=== PATIENT | female | born 1970 | race Caucasian/White ===

== ENCOUNTER 2017-10-26 13:06 | Emergency (ER) | payer BC ==
--- NOTE | 2017-10-26 14:13 | UC ---
Dawit Ayala Angela, scribed for Francisco Javier Walker MD on 10/26/17 at 1323 . General HPI - HPI Summary HPI Summary: This pt is a 47 y/o female presenting to [facility] for a medication refill. Pt states she just moved to the area and has ran out of her blood pressure medication. She reports she has been getting intermittent headaches, but denies any today. Denies chest pain, SOB, dizziness, lightheadedness, blurry vision, any other complaints. PMHx: endometrial CA s/p hysterectomy. She is currently in remission. - History of Current Complaint Stated Complaint: MED REFILL Time Seen by Provider: 10/26/17 13:13 Hx Obtained From: Patient Onset/Duration: Lasting Days, Still Present Timing: Intermittent Episodes Lasting: Onset Severity: Moderate - intermittent Current Severity: None Pain Intensity: 0 Pain Location at: head Aggravating: nothing Alleviating: nothing Associated Signs & Symptoms: Positive: Headache - intermittent, Other - NEG: blurry vision. Negative: Confusion, Chest Pain, Dizziness, Fever, SOB - Allergy/Home Medications Allergies/Adverse Reactions: Allergies Allergy/AdvReac Type Severity Reaction Status Date / Time Penicillins Allergy Swelling Verified 10/26/17 13:38 PMH/Surg Hx/FS Hx/Imm Hx Other Endocrine History: DENIES: diabetes Cardiovascular History: Hypertension Other Cancer History: Ovarian and endometrial cancer - Surgical History Surgical History: Yes Surgery Procedure, Year, and Place: Hysterectomy - Family History Known Family History: Negative: Cardiac Disease, Hypertension, Diabetes - Social History Alcohol Use: Occasionally Substance Use Type: None Smoking Status (MU): Never Smoked Tobacco Review of Systems Constitutional: Negative Skin: Negative Eyes: Negative ENT: Negative Respiratory: Negative Cardiovascular: Negative Gastrointestinal: Negative Genitourinary: Negative Motor: Negative Neurovascular: Negative Musculoskeletal: Negative Neurological: Headache - intermittent, none today Psychological: Negative All Other Systems Reviewed And Are Negative: Yes Physical Exam - Summary Physical Exam Summary: VITAL SIGNS: Reviewed. GENERAL: Patient is an obese female who is lying comfortable in the stretcher. Patient is not in any acute respiratory distress. HEAD AND FACE: Normocephalic EYES: PERRLA, EOMI x 2. EARS: Hearing grossly intact. MOUTH: Oropharynx within normal limits. NECK: Supple, trachea is midline, no adenopathy, no JVD, no carotid bruit. CHEST: Symmetric, no tenderness at palpation LUNGS: Clear to auscultation bilaterally. No wheezing or crackles. CVS: Regular rate and rhythm, S1 and S2 present, no murmurs or gallops appreciated. ABDOMEN: Soft, non-tender. Bowel sounds are normal. No abdominal abnormal pulsations. EXTREMITIES: Full ROM in all major joints, no edema, no cyanosis or clubbing. NEURO: Alert and oriented x 3. No acute neurological deficits. Speech is normal and follows commands. SKIN: Dry and warm Triage Information Reviewed: Yes Vital Signs: Initial Vitals Temp Pulse Resp BP Pulse Ox 97.2 F 59 16 145/100 99 10/26/17 13:30 10/26/17 13:30 10/26/17 13:30 10/26/17 13:30 10/26/17 13:30 Vital Signs Reviewed: Yes Course/Dx - Course Course Of Treatment: This pt is a 47 y/o female presenting to [facility] for a medication refill. Pt states she just moved to the area and has ran out of her blood pressure medication. She reports she has been getting intermittent headaches, but denies any today. Denies chest pain, SOB, dizziness, lightheadedness, blurry vision, any other complaints. PMHx: endometrial CA s/p hysterectomy. She is currently in remission. Pt was discharged home with a prescription for Lisinopril. She was a given a referral to establish a PCP and follow up. Pt was instructed to return to the urgent care or go to ER immediately if any of the symptoms return or worsens. Pt understands and agrees. All questions were answered to patient satisfaction. There were no further complaints or concerns. Pt is hemodynamically stable, alert and oriented x3. The patient was found to have increased blood pressure in UC. The patient will follow up with PCP for better control of BP. - Differential Dx - Multi-Symptom Provider Diagnoses: Medication refill Discharge - Sign-Out/Discharge Documenting (check all that apply): Discharge - discharge to home - Discharge Plan Condition: Stable Disposition: HOME Prescriptions: Lisinopril/HCTZ 20/12.5(NF) [Zestoretic 20/12.5(NF)] 1 tab PO DAILY #30 tab Patient Education Materials: Hypertension (ED), Medicine Refill (ED) Referrals: [facility] [Outside] No Primary Care Phys,NOPCP [Primary Care Provider] - Additional Instructions: Take medications as instructed Increase your fluid intake Return to the UC if symptoms worsen The documentation as recorded by the Dawit ugarte Angela accurately reflects the service I personally performed and the decisions made by me, Francisco Javier Walker MD.
== END 2017-10-26 13:38 | disposition home or self-care (01) ==
LOC: UCEAST 13:06
DX: I10 Essential (primary) hypertension (principal); Z76.0 Encounter for issue of repeat prescription; Z85.43 Personal history of malignant neoplasm of ovary; Z85.42 Personal history of malignant neoplasm of other parts of uterus; Z88.0 Allergy status to penicillin
CPT/HCPCS: 99202; G0463

== ENCOUNTER 2018-03-11 14:49 | Emergency (ER) | payer BC ==
[2018-03-11 14:57] VITALS: BP 151/75
--- NOTE | 2018-03-11 15:56 | UC ---
Shoulder Pain HPI - HPI Summary HPI Summary: 47 yo female felt a pop right shoulder lifting a cooler Right handed occurred yesterday relatively no pain at rest hurts to abduct no numbness/tingling - History of Current Complaint Chief Complaint: UCUpperExtremity Stated Complaint: R SHOULDER INJURY Time Seen by Provider: 03/11/18 15:48 Hx Obtained From: Patient Onset/Duration: Sudden Onset Timing: Constant Severity Initially: Moderate Severity Currently: None Location Of Pain: Is Diffuse Pain Intensity: 0 Pain Scale Used: 0-10 Numeric Character: Aching Aggravating Factor(s): Movement, External Rotation, Abduction Associated Signs And Symptoms: Positive: Negative Related History: Dominant Hand Right - Allergies/Home Medications Allergies/Adverse Reactions: Allergies Allergy/AdvReac Type Severity Reaction Status Date / Time Penicillins Allergy Swelling Verified 03/11/18 14:57 PMH/Surg Hx/FS Hx/Imm Hx Previously Healthy: Yes Cardiovascular History: Hypertension - Surgical History Surgical History: Yes Surgery Procedure, Year, and Place: Hysterectomy - Family History Known Family History: Positive: Cardiac Disease, Hypertension, Diabetes, Other - CA - Social History Alcohol Use: Occasionally Substance Use Type: None Smoking Status (MU): Never Smoked Tobacco Review of Systems Constitutional: Negative Skin: Negative Eyes: Negative ENT: Negative Respiratory: Negative Cardiovascular: Negative Gastrointestinal: Negative Genitourinary: Negative Motor: Negative Neurovascular: Negative Musculoskeletal: Arthralgia Neurological: Negative Psychological: Negative Is Patient Immunocompromised?: No All Other Systems Reviewed And Are Negative: Yes Physical Exam Triage Information Reviewed: Yes Appearance: Well-Appearing, No Pain Distress, Well-Nourished Vital Signs: Initial Vital Signs Temp 98.9 F 03/11/18 14:54 Pulse 64 03/11/18 14:54 Resp 12 03/11/18 14:54 BP 151/75 03/11/18 14:54 Pulse Ox 100 03/11/18 14:54 Vital Signs Reviewed: Yes Eyes: Positive: Conjunctiva Clear ENT: Positive: Hearing grossly normal. Negative: Nasal congestion, Nasal drainage, Trismus, Muffled voice, Hoarse voice Neck: Positive: Supple Respiratory: Positive: Lungs clear, Normal breath sounds, No respiratory distress, No accessory muscle use Cardiovascular: Positive: RRR, No Murmur Musculoskeletal: Positive: No Edema, ROM Limited @ - right shoulder-unable to abduce >30 degrees Neurological: Positive: Alert Psychological Exam: Normal Skin Exam: Normal Diagnostics - Radiology No standard instances Xray Interpretation: No Acute Changes - right shoulder Radiology Interpretation Completed By: Radiologist Shoulder Course/Dx - Differential Dx/Diagnosis Provider Diagnoses: right shoulder injury-suspect rotator cuff tear Discharge - Sign-Out/Discharge Documenting (check all that apply): Patient Departure All imaging exams completed and their final reports reviewed: Yes - Discharge Plan Condition: Stable Disposition: HOME Patient Education Materials: Rotator Cuff Injury (ED), How to Use a Sling (ED) Forms: *Work Release Referrals: Jose Alejandro Artis MD [Medical Doctor] - As Soon As Possible Additional Instructions: ice aleve I am concerned that you have a rotator cuff tear - Billing Disposition and Condition Condition: STABLE Disposition: Home
--- NOTE | 2018-03-11 16:57 | RAD ---
INDICATION: Right shoulder pain after heavy lifting the previous day COMPARISON: None. TECHNIQUE: 5 views of the right shoulder were obtained. FINDINGS: The adequately corticated bones are in normal alignment. Joint spaces appear maintained. No fracture, dislocation or focal bony abnormality is seen. IMPRESSION: Normal radiograph of the right shoulder. If the patient's symptoms persist, follow-up imaging is recommended.
== END 2018-03-11 16:54 | disposition home or self-care (01) ==
LOC: UCEAST 14:49
DX: S49.91XA Unspecified injury of right shoulder and upper arm, initial encounter (principal); X50.0XXA Overexertion from strenuous movement or load, initial encounter; Y93.9 Activity, unspecified; Y92.9 Unspecified place or not applicable; Z88.0 Allergy status to penicillin
CPT/HCPCS: 99211; G0463

== ENCOUNTER 2018-07-04 07:42 | Day surgery (SDC) | payer BC ==
[~2018-07-04 07:42] MED LIST: Buffered Lidocaine 0.9% SYRIN* 5 ML/SYR SYRINGE INTRADERM ONE; Dexamethasone IV* 4 MG/ML 1 ML (4 MG) IV SLOW PU ONE; Famotidine IV* 10 MG/ML 2 ML (20 mg) IV ONE; Lactated Ringers 1000 ML Bag* 1,000 ML IV SCH
[2018-07-04] MEDS ORDERED: EPINEPHRINE 1 MG/ML 1 ML VIAL ONE (08:03)
[2018-07-04] MEDS ORDERED: Bupivacaine 0.5% W/EPI SDV* 30 ML VIAL ONE (08:04)
[2018-07-04] MEDS ORDERED: Dexamethasone IV* 4 MG/ML 1 ML (4 MG) ONE (08:12)
[2018-07-04] MEDS ORDERED: Famotidine IV* 10 MG/ML 2 ML (20 mg) ONE (08:13)
[2018-07-04] MEDS ORDERED: Clindamycin 900 MG/D5W BAG(*) 900 MG/50 ML BAG IVPB ONE (08:13)
[2018-07-04] MEDS ORDERED: Lidocaine 2% PF * 5 ML VIAL ONE (08:42)
[2018-07-04] MEDS ORDERED: Rocuronium* 10 MG/ML VIAL ONE (08:42)
[2018-07-04] MEDS ORDERED: Midazolam* 1 MG/ML 5 ML VIAL (5 MG) ONE (08:42)
[2018-07-04] MEDS ORDERED: Propofol* 10 MG/ML 20 ML BTL ONE (08:42)
[2018-07-04] MEDS ORDERED: fentaNYL* 50 MCG/ML 2 ML VIAL (100 MCG VIAL) ONE ×2 (08:43→11:32)
[2018-07-04] MEDS ORDERED: HYDROcodone/ACETAMIN 5-325 MG* 1 TAB PO PRN (09:01)
[2018-07-04] MEDS ORDERED: DiMENhydriNATE IV* 50 MG/ML VIAL IV PUSH PRN (09:01)
[2018-07-04] MEDS ORDERED: Naloxone* 0.4 MG/ML 1 ML VIAL IV PRN (09:01)
[2018-07-04] MEDS ORDERED: oxyCODONE/Acetamin 5/325 MG* TAB PO PRN (09:01)
[2018-07-04] MEDS ORDERED: fentaNYL* 50 MCG/ML 2 ML VIAL (100 MCG VIAL) IV PRN (09:01)
[2018-07-04] MEDS ORDERED: ROPIVACAINE 5 MG/ML 30 ML BTL (0.5%) ONE (09:42)
[2018-07-04] MEDS ORDERED: Ondansetron INJ* 2 MG/ML VIAL ONE (12:11)
[2018-07-04] MEDS ORDERED: Neostigmine Methylsulfate* 1 MG/ML 10 ML VIAL (1 mg/ml) ONE (12:45)
[2018-07-04] MEDS ORDERED: Glycopyrrolate IV* 0.2 MG/ML 1 ML VIAL ONE (12:45)
[2018-07-04 14:05] VITALS: BP 152/82
--- NOTE | 2018-07-05 01:21 | OP ---
OPERATIVE NOTE: DATE OF OPERATION: 07/04/18 - SDS DATE OF : 70 SURGEON: Dr. Jose Alejandro Artis. PARISH WORKER: Mel Patel ANESTHESIOLOGIST: Tami Chen MD. ANESTHESIA: General anesthesia, regional interscalene block anesthesia. PRE-OP DIAGNOSES: 1. Right shoulder rotator cuff tendon tear, supraspinatus. 2. Right shoulder subacromial bursitis and impingement. 3. Right shoulder AC joint osteoarthritis. 4. Possible right shoulder biceps tendinosis. POST-OP DIAGNOSES: 1. Right shoulder rotator cuff tendon tear, supraspinatus. 2. Right shoulder subacromial bursitis and impingement. 3. Right shoulder AC joint osteoarthritis. OPERATIVE PROCEDURE: 1. Right shoulder arthroscopic rotator cuff tendon repair, supraspinatus, double row. 2. Right shoulder arthroscopic subacromial decompression. 3. Right shoulder arthroscopic distal clavicle resection. 4. Right shoulder arthroscopic evaluation of biceps and superior labrum. ANTIBIOTICS: Clindamycin 900 mg IV. IV FLUIDS: See Anesthesia note. [id number] TIME: 120 minutes. SPECIMEN: None. IMPLANTS: Mitek Healix 5.5 mm suture anchors x2. Mitek Healix knotless 5.5 mm suture anchor x1. ARTHROSCOPY FLUID UTILIZED: Unavailable to this surgeon. COMPLICATIONS: None. ESTIMATED BLOOD LOSS: Minimal. 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 She heard a "rip" about the right shoulder and had immediately right shoulder pain and some limited active range of motion. The patient responded insufficiently to a full spectrum of nonoperative treatment and an MRI showed a rotator cuff tear, full thickness, anterior supraspinatus. The patient opted for surgery. Discussed risks and potential complications. DESCRIPTION OF PROCEDURE: In preoperative holding, the patient signed a written consent. Operative extremity was marked in preoperative holding. The patient was taken back to the operating room and placed supine on the operating room table. The patient was sedated and intubated. The patient was transferred into the lateral decubitus position. We did this carefully as the patient has a BMI of 51.2. Bony prominences padded. Axillary roll placed. Right shoulder in longitudinal traction with the appropriate amount of forward flexion and abduction and 15 pounds of longitudinal traction. Right shoulder was prepped and draped. Surgical time-out was performed. I entered the right shoulder glenohumeral joint from posterior with arthroscopic needle. Introduced 30 cc of normal saline. Established posterior glenohumeral joint portal using standard technique. No articular cartilage damage noted. No superior labral tear or biceps tendon injury noted. I established anterior glenohumeral joint portal under direct visualization. I used an arthroscopic probe to probe the biceps tendon and superior labrum. Still no damage to either structure noted. I debrided some scar tissue in the rotator interval. A supraspinatus full-thickness tear was appreciated. I removed instruments and fluid from the glenohumeral joint and entered the subacromial space. Established a lateral and then a posterolateral portal under direct visualization. I debrided the subacromial bursa and bursitis with arthroscopic shaver. The patient had a mcclelland-looking tendon, minimally retracted, full thickness. More of the width of the supraspinatus than had been appreciated on MRI preoperative. I prepared the footprint with a vapor and shaver and then haile. I performed a subacromial decompression using the arthroscopic haile, flattening the undersurface of the acromion. The patient was noted to have a rather small humeral head, especially given her general size. I made an anterolateral portal through which I would repair the patient's rotator cuff. I placed a 7 mm plastic cannula there as I had also placed one anterior. I placed 2 medial row anchors in the medial most aspect of the rotator cuff footprint. These were triple loaded anchors. I had intended to place 2 stitches from each anchor. Two of the sutures came out of the anterior anchor, so I decided to use one suture from the anterior anchor and 3 from the posterior. Using a Ferrara [employer]hew suture passer, I placed 3 horizontal mattress and 1 simple stitch with my medial row stitches. I placed all sutures before tying any of them. Knots brought tendon nicely to bone with a wide surface of healing. I took 4 sutures from the medial row and placed them into a knotless anchor placed in the lateral most extent of the footprint or just lateral to the footprint. This brought down a nice amount of tendon pressed firmly to bone. I liked the stability of my repair visually and by probing. I next moved to the AC joint, removed bursitic tissue with a vapor and debrided 8 mm of the distal end of the clavicle with an arthroscopic haile. I next removed instruments and fluid from the subacromial space. I closed skin incisions with [id number] 12 stitches using nylon 3-0 suture. Xeroform, 4x4s, ABD, foam tape. Sling and abduction pillow. The patient was extubated and transferred to the PACU. She was discharged home when she passed appropriate criteria. DISPOSITION: Wound care instructions were provided. Percocet as needed for pain control. We will hold off on physical therapy until after the first clinic visit given the size of her arm. She will be in a sling and abduction pillow at all times. [id number]/CPS #: [id number] MTDD
== END 2018-07-04 17:00 | disposition home or self-care (01) ==
LOC: OR 07:42
PROVIDERS: ATTEND Orthopaedic Surgery
DX: S46.011A Strain of muscle(s) and tendon(s) of the rotator cuff of right shoulder, initial encounter (principal); M75.41 Impingement syndrome of right shoulder; M75.51 Bursitis of right shoulder; M19.011 Primary osteoarthritis, right shoulder; G89.18 Other acute postprocedural pain; I10 Essential (primary) hypertension; Z85.42 Personal history of malignant neoplasm of other parts of uterus; Z68.43 Body mass index [BMI] 50.0-59.9, adult; X50.0XXA Overexertion from strenuous movement or load, initial encounter; Y93.89 Activity, other specified; Y92.9 Unspecified place or not applicable
CPT/HCPCS: J1100; J2250; J2405; J2704; J2710; J2795; J3010

== ENCOUNTER → 2019-06-12 09:57 | Day surgery (SDC) | payer BC ==
[~2019-06-12 09:57] MED LIST changes: +Atracurium* 10 MG/ML 10 ML VIAL ONE; -Buffered Lidocaine 0.9% SYRIN* 5 ML/SYR SYRINGE INTRADERM ONE; +Buffered Lidocaine 1% SYRIN* 1 ML/SYRINGE INTRADERM ONE; +Bupivacaine 0.25% EPI 200,000* 30 ML SDV ONE; +Clindamycin 900 MG/D5W BAG(*) 900 MG/50 ML BAG IVPB ONE; +Dexamethasone IV* 4 MG/ML 1 ML (4 MG) ONE; +DiMENhydriNATE IV* 50 MG/ML VIAL IV PUSH PRN; +EPINEPHRINE 1 MG/ML 1 ML VIAL ONE; +Famotidine IV* 10 MG/ML 2 ML (20 mg) ONE; +HYDROmorphone INJ1* 1 MG/ML SYRINGE ONE; +Levalbuterol 0.63MG/3ML NEB* UNIT OF USE INH ONE; +Midazolam* 1 MG/ML 5 ML VIAL (5 MG) ONE; +Naloxone* 0.4 MG/ML 1 ML VIAL IV PRN; +Ondansetron INJ* 2 MG/ML VIAL IV PRN; +Ondansetron INJ* 2 MG/ML VIAL ONE; +Propofol* 10 MG/ML 20 ML BTL ONE; +ROPIVACAINE 5 MG/ML 30 ML BTL (0.5%) ONE; +Scopolamine 1.5 mg* PATCH ONE; +Scopolamine 1.5 mg* PATCH TRANSDERM PRN; +fentaNYL* 50 MCG/ML 2 ML VIAL (100 MCG VIAL) ONE; +oxyCODONE/Acetamin 5/325 MG* TAB ONE; +oxyCODONE/Acetamin 5/325 MG* TAB PO PRN
[2019-06-12] MEDS: fentaNYL* 50 MCG/ML 2 ML VIAL (100 MCG VIAL) IV PRN ×2 (15:39→15:53)
[2019-06-12] MEDS: HYDROmorphone INJ1* 1 MG/ML SYRINGE IV PRN ×2 (16:14→16:21)
[2019-06-12 17:47] VITALS: BP 134/79
--- NOTE | 2019-06-13 02:43 | OP ---
DATE OF OPERATION: 06/12/19 - [facility] DATE OF : 70 SURGEON: Dr. Jose Alejandro Artis. FISH CLEANER MACHINE TENDER: OSCAR Lamb. A physician bilingual executive assistant was required for the length of the procedure for assistance with patient positioning, instrumentation , and closure. ANESTHESIOLOGIST: Dr. Mercado. ANESTHESIA: General anesthesia, regional interscalene block anesthesia. PRE-OP DIAGNOSES: 1. Left rotator cuff tendon tear, supraspinatus. 2. Left shoulder subacromial bursitis and impingement. 3. Left shoulder acromioclavicular joint osteoarthritis. 4. Possible left shoulder proximal biceps tendinosis. POST-OP DIAGNOSES: 1. Left rotator cuff tendon tear, supraspinatus. 2. Left shoulder subacromial bursitis and impingement. 3. Left shoulder acromioclavicular joint osteoarthritis. 4. Left shoulder superior labrum tear, proximal biceps tendinosis. OPERATIVE PROCEDURE: 1. Left shoulder arthroscopic rotator cuff tendon repair, supraspinatus, double row. 2. Left shoulder arthroscopic subacromial decompression. 3. Left shoulder arthroscopic distal clavicle resection. 4. Left shoulder arthroscopic debridement including biceps tenotomy. ANTIBIOTICS: Clindamycin 900 mg IV. IV FLUIDS: See anesthesia note. [id number] TIME: 99 minutes. SPECIMEN: None. IMPLANTS: Two Corkscrew anchors, Arthrex, 5.5 mm, double loaded with suture tape. One SwiveLock anchor, Arthrex, used for lateral row fixation. COMPLICATIONS: None. ESTIMATED BLOOD LOSS: Minimal. 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 Discussed risks and potential complications of surgery. MRI demonstrated supraspinatus anterior rotator cuff tendon tear. DESCRIPTION OF PROCEDURE: In preoperative holding, the patient signed a written consent. Operative extremity was marked in preoperative holding. The patient was taken back to the operating room after anesthesia performed a regional interscalene block. In the operating room, the patient was placed supine on the operating room table, sedated and intubated. The patient was converted into the lateral decubitus position. Left shoulder up. The beanbag was hardened. Axillary roll placed. Longitudinal traction left shoulder, appropriate amount of forward flexion and abduction. All bony prominences padded. Left shoulder was prepped and draped. Formal surgical time - out performed. The patient's weight and body mass index 51 made positioning and some instrumentation intraoperative a little bit more cumbersome. Placed a spinal needle into the glenohumeral joint from posterior and infused 30 cc of normal saline. Established posterior glenohumeral joint portal using standard technique. Commenced diagnostic arthroscopy. No articular cartilage damage. No subscapularis tendon tear. Supraspinatus tear recognized. Established anterior glenohumeral joint portal under direct visualization. Probed superior labrum. There was a superior labral tear, unstable. There is also much hyperemia about the biceps anchor. I therefore, decided to release the biceps. I brought an arthroscopic Arthrex scissors and cut the biceps at its origin. I had discussed with the patient preoperatively both in her last preoperative clinic visit as well as on the day of surgery, biceps tenodesis versus tenotomy and the patient preferred tenotomy, so we picked tenotomy. We did not re- attach. Removed fluid and instruments from the glenohumeral joint and moved to the subacromial space. Established anterior and posterior subacromial portals. Then established lateral, posterolateral, and a slightly more anterolateral portals under direct visualization. Removed a significant amount of subacromial bursitis tissue with an arthroscopic shaver. The patient had a mcclelland coracoacromial ligament that I took down and revealed the undersurface of the anterior aspect of the acromion. Used an arthroscopic haile to smooth out the undersurface curve at the anterior aspect of the acromion. Identified the rotator cuff tendon tear. Tissue was very mcclelland, strong- looking. It reduced nicely to bone. I prepared the footprint with an arthroscopic haile. Through superolateral poke holes I placed 2 Corkscrew suture anchors. I then used an antegrade Scorpion suture passer to pass horizontal mattress stitches, 2 from each anchor. I placed all sutures before tying any of them. Tied my knots. This brought cuff excellently to bone. I then placed 4 suture tapes from the medial row into my lateral row SwiveLock anchor. This effected an incredible-looking closure, stable to probing and to movement of the humerus. There was a tiniest little dog ear posteriorly and I smoothed that out by placing a simple stitch with a free suture from the SwiveLock anchor using a retrograde suture passer. Took some photos of the rotator cuff repair from lateral and posterior. Moved to the AC joint. Debrided synovitic tissue with a cautery device and then removed 8 mm of the distal end of the clavicle with the arthroscopic haile. Removed fluid and instruments from the subacromial space. Closed skin incisions with [id number] and 12 stitches using the nylon 3-0 suture. Xeroform, 4x4s, ABDs, foam tape. Sling with abduction pillow. The patient was awake and extubated and transferred to the PACU. DISPOSITION: The patient will be in a sling for 6 weeks postoperatively. She will not start physical therapy for 6 weeks. She will receive Percocet as needed for pain control postoperatively. She will follow up with me in 10 to 14 days postoperatively in clinic. [id number]/CPS #: [id number] MTDD
== END | disposition home or self-care (01) ==
LOC: OR 09:57
PROVIDERS: ATTEND Orthopaedic Surgery
DX: M75.122 Complete rotator cuff tear or rupture of left shoulder, not specified as traumatic (principal); M75.41 Impingement syndrome of right shoulder; I10 Essential (primary) hypertension; Z85.43 Personal history of malignant neoplasm of ovary; E66.9 Obesity, unspecified; G89.18 Other acute postprocedural pain
CPT/HCPCS: A9270-GY; C1713; J1100; J1170; J2250; J2405; J2704; J2795; J3010